=== PATIENT | female | born 1995 | race Caucasian/White ===

== ENCOUNTER → 2024-04-05 | Day surgery (SDC) | payer BC ==
[~2024-04-05] MED LIST: Gadobenate Dimeglumine 2 ML, Sodium Chloride 0.9% 250 ML 10 ML, Iopamidol 8 ML, Lidocai... FS ONE
== END ==
LOC: CSHRAD 09:36
PROVIDERS: ATTEND Family Medicine Sports Medicine
PROC: BQ30YZZ Magnetic Resonance Imaging (MRI) of Right Hip using Other Contrast (ICD-10-PCS; principal; 2024-04-05)
DX: M24.151 Other articular cartilage disorders, right hip (principal); S73.191A Other sprain of right hip, initial encounter; X58.XXXA Exposure to other specified factors, initial encounter
CPT/HCPCS: 27093; 77002; A9577; J0171; J7050; Q9967